=== PATIENT | male | born 1960 | race Caucasian/White ===

== ENCOUNTER 2019-07-29 17:11 | Emergency (ER) | payer MEDICARE ==
[~2019-07-29] VITALS: Ht 175.3 cm; Wt 83.0 kg
[2019-07-29 20:59] VITALS: BP 155/89
== END 2019-07-29 22:13 | disposition home or self-care (01) ==
LOC: ER 17:11
DX: S00.12XA Contusion of left eyelid and periocular area, initial encounter (principal); S69.92XA Unspecified injury of left wrist, hand and finger(s), initial encounter; E78.5 Hyperlipidemia, unspecified; I10 Essential (primary) hypertension; W01.0XXA Fall on same level from slipping, tripping and stumbling without subsequent striking against object, initial encounter; Y93.89 Activity, other specified; Y92.89 Other specified places as the place of occurrence of the external cause; Y99.8 Other external cause status
CPT/HCPCS: 70486; 73130